=== PATIENT | male | born 1995 | race Caucasian/White ===

== ENCOUNTER 2018-03-15 14:51 | Emergency (ER) | payer OTHER | END 2018-03-15 16:31 | disposition home or self-care (01) | LOC: M ED 14:51 | DX: T44.7X5A Adverse effect of beta-adrenoreceptor antagonists, initial encounter (principal); Y92.9 Unspecified place or not applicable; Y93.9 Activity, unspecified; R51 Headache; R00.1 Bradycardia, unspecified; H40.9 Unspecified glaucoma; Z79.899 Other long term (current) drug therapy | CPT/HCPCS: 93005 ==

== ENCOUNTER → 2018-10-22 | Outpatient (REF) | payer OTHER ==
[~2018-10-22] MED LIST: LATA0.0013 OP; SIMB1SUS OP
== END ==
LOC: M LAB REF 12:15
PROVIDERS: ATTEND Ophthalmology
DX: H10.432 Chronic follicular conjunctivitis, left eye (principal)

== ENCOUNTER → 2019-07-27 | Outpatient (REF) | payer OTHER ==
[2019-07-27 16:49] LABS: BASO % 0.3 % (0.0-1.0); EOS # 0.1 10^3/uL (0.0-0.5); EOS % 1.4 % (0.0-3.0); HEMATOCRIT 45.2 % (42.0-52.0); HEMOGLOBIN 15.4 g/dl (13.5-17.5); LYMPH # 1.9 10^3/uL (1.5-5.0); LYMPH % 21.5 % (24.0-44.0); MEAN CORPUSCULAR HEMOGLOBIN 29.3 pg (27.0-33.0); MEAN CORPUSCULAR HGB CONC 34.1 g/dl (32.0-36.5); MEAN CORPUSCULAR VOLUME 86.1 fl (80.0-96.0); MONO # 0.7 10^3/uL (0.0-0.8); MONO % 7.9 % (0.0-5.0); NEUTROPHILS % 68.6 % (36.0-66.0); PLATELET COUNT, AUTOMATED 243 10^3/uL (150-450); RED BLOOD COUNT 5.25 10^6/uL (4.30-6.10); WHITE BLOOD COUNT 8.8 10^3/uL (4.0-10.0)
[2019-07-27 17:22] LABS: ERYTHROCYTE SEDIMENTATION RATE 5 mm/hr (0-15)
[2019-07-27 17:28] LABS: ALBUMIN 4.3 GM/DL (3.2-5.2); ALT/SGPT 58 U/L (12-78); BILIRUBIN,TOTAL 0.5 MG/DL (0.2-1.0); BLOOD UREA NITROGEN 20 MG/DL (7-18); C REACTIVE PROTEIN QUANTITATIV < 0.30 MG/DL (0.00-0.30); CALCIUM LEVEL 8.9 MG/DL (8.5-10.1); CARBON DIOXIDE LEVEL 22 MEQ/L (21-32); CHLORIDE LEVEL 105 MEQ/L (98-107); CREATININE FOR GFR 1.28 MG/DL (0.70-1.30); GLOMERULAR FILTRATION RATE > 60.0 (>60); GLUCOSE, FASTING 78 MG/DL (70-100); POTASSIUM SERUM 4.4 MEQ/L (3.5-5.1); SODIUM LEVEL 137 MEQ/L (136-145); TOTAL PROTEIN 7.8 GM/DL (6.4-8.2); URIC ACID 7.6 MG/DL (3.5-7.2)
[2019-07-30 15:07] LABS: ANGIOTENSIN 1 CONVERTING ENZYM < 15 U/L (14-82); Lyme Disease IgG Ab 18 kDa Ban Absent (.); Lyme Disease IgG Ab 23 kDa Ban Absent (.); Lyme Disease IgG Ab 28 kDa Ban Absent (.); Lyme Disease IgG Ab 30 kDa Ban Absent (.); Lyme Disease IgG Ab 39 kDa Ban Absent (.); Lyme Disease IgG Ab 41 kDa Ban Present (.); Lyme Disease IgG Ab 45 kDa Ban Absent (.); Lyme Disease IgG Ab 58 kDa Ban Absent (.); Lyme Disease IgG Ab 66 kDa Ban Absent (.); Lyme Disease IgG Ab 93 kDa Ban Absent (.); Lyme Disease IgG West Blot Int Negative (.); Lyme Disease IgG/IgM Antibodie 0.96 ISR (0.00-0.90); Lyme Disease IgM Ab 23 kDa Ban Absent (.); Lyme Disease IgM Ab 39 kDa Ban Absent (.); Lyme Disease IgM Ab 41 kDa Ban Absent (.); Lyme Disease IgM Ab Quantitati <0.80 index (0.00-0.79); Lyme Disease IgM West Blot Int Negative (.)
== END ==
LOC: M SFHCRHEU 15:16
PROVIDERS: ATTEND Internal Medicine
DX: L50.8 Other urticaria (principal); M25.50 Pain in unspecified joint; Z86.69 Personal history of other diseases of the nervous system and sense organs; R76.8 Other specified abnormal immunological findings in serum
CPT/HCPCS: 80053; 82164; 84443; 84550; 85025; 85652; 86140; 86617; G0463

== ENCOUNTER → 2019-10-14 | Outpatient (CLI) | payer OTHER ==
[~2019-10-14] MED LIST changes: +BIMA01SOL OU; +COMB0.2S OU; +OCUF0.25 OD; +POLYSOL OD
--- NOTE | 2019-10-18 15:25 | SLEEPCENT ---
DATE OF PROCEDURE: 10/14/2019 ORDERED BY: Hannah Mejía NP Nocturnal polysomnography was performed for evaluation of sleep physiology in this patient with a history of excessive somnolence, snoring and nonrestorative sleep. 7 hours and 39 minutes of data were reviewed. There were 355 minutes of sleep identified. Sleep latency was short at 6 minutes. REM latency was delayed at 164 minutes. Sleep architecture was fragmented early in the study, improved later with three REM cycles. Overall sleep efficiency 78.8%. The electrocardiogram showed a sinus rhythm with an average heart rate of 60 beats per minute. Some PVCs were appreciated and the rate varies between 40 to 80 beats per minute. EEG showed normal waveforms for awake and sleep. There were 32 respiratory events identified of 10 seconds in duration or greater for an apnea-hypopnea index of 5.2. The events were not exclusive to sleep stage nor body posture. Arousals from respiratory events occurred 6.4 times per hour and oxygen desaturations were seen to 90%. There was minimal activity in the limb leads. Limb movement arousal index of 6.3. IMPRESSION: Obstructive sleep apnea syndrome (G47.33). Apnea-hypopnea index 5.2. RECOMMENDATIONS: Given the patient's symptoms and the lack of a postural relationship for respiratory events, referral back to sleep disorder center for pressure therapy is recommended. In the interim, alcohol and sedative avoidance should be practiced and caution exercised during operation of motor vehicles.
== END ==
LOC: M SLEEP 20:00
PROVIDERS: ATTEND Nurse Practitioner Family
DX: R06.83 Snoring (principal); R40.0 Somnolence; G47.59 Other parasomnia

== ENCOUNTER → 2019-11-10 | Outpatient (CLI) | payer OTHER ==
--- NOTE | 2019-11-15 08:38 | SLEEPCENT ---
DATE OF PROCEDURE: 11/10/2019 ORDERED BY: NATAN Harrell Nocturnal polysomnography was performed for the titration of pressure therapy in this patient with obstructive sleep apnea syndrome. Apnea-hypopnea index 5.2. For testing a ResMed AirFit F20 full-face mask of medium size was used; 4 cm of water pressure were applied to the circuit and the lights were extinguished. 7 hours of data were reviewed. There were 377.5 minutes of sleep identified. Sleep latency was short at 10.5 minutes. Rapid eye movement (REM) latency mildly prolonged at 167 minutes. Sleep architecture improved and there was evidence of some REM rebound. There were 3 REM cycles noted. Overall sleep efficiency was 91.5%. The patient's electrocardiogram showed a sinus rhythm with an average heart rate at 56 beats per minute. Electroencephalogram (EEG) showed normal waveforms for awake and sleep. Respiratory events were fully palliated with CPAP at a pressure of +5. Remaining measures of sleep physiology were normal. IMPRESSION: Obstructive sleep apnea syndrome (G47.33). RECOMMENDATIONS: Nightly use of pressure therapy 5 cm of water.
== END ==
LOC: M SLEEP 20:00
PROVIDERS: ATTEND Nurse Practitioner Family
DX: G47.33 Obstructive sleep apnea (adult) (pediatric) (principal)

== ENCOUNTER 2019-11-24 06:27 | Emergency (ER) | payer OTHER ==
[~2019-11-24] VITALS: Ht 177.8 cm; Wt 117.9 kg
[2019-11-24] MEDS ORDERED: NS 1,000 ML IV ONE (07:00)
[2019-11-24] MEDS ORDERED: diphenhydrAMINE 50MG/ML VIAL (J1200) IV ONE (07:00)
[2019-11-24] MEDS ORDERED: dexameTHASONE 20MG/5ML VIAL (J1100 PER 1MG) IV ONE (07:00)
[2019-11-24] MEDS ORDERED: FAMOTIDINE INJ 20MG/2ML VIAL (S0028 PER 1) IVP ONE (07:00)
[2019-11-24 07:16] LABS: BASO % 0.1 % (0.0-1.0); EOS # 0.1 10^3/uL (0.0-0.5); EOS % 0.7 % (0.0-3.0); HEMATOCRIT 45.4 % (42.0-52.0); HEMOGLOBIN 15.5 g/dl (13.5-17.5); LYMPH # 1.7 10^3/uL (1.5-5.0); LYMPH % 18.3 % (24.0-44.0); MEAN CORPUSCULAR HEMOGLOBIN 29.3 pg (27.0-33.0); MEAN CORPUSCULAR HGB CONC 34.1 g/dl (32.0-36.5); MEAN CORPUSCULAR VOLUME 85.8 fl (80.0-96.0); MONO # 0.5 10^3/uL (0.0-0.8); MONO % 5.9 % (0.0-5.0); NEUTROPHILS # 6.9 10^3/uL (1.5-8.5); NEUTROPHILS % 74.7 % (36.0-66.0); PLATELET COUNT, AUTOMATED 202 10^3/uL (150-450); RED BLOOD COUNT 5.29 10^6/uL (4.30-6.10); WHITE BLOOD COUNT 9.2 10^3/uL (4.0-10.0)
[2019-11-24 07:36] LABS: BLOOD UREA NITROGEN 14 MG/DL (7-18); C REACTIVE PROTEIN QUANTITATIV 0.44 MG/DL (0.00-0.30); CALCIUM LEVEL 8.4 MG/DL (8.5-10.1); CARBON DIOXIDE LEVEL 23 MEQ/L (21-32); CHLORIDE LEVEL 109 MEQ/L (98-107); CREATININE FOR GFR 0.92 MG/DL (0.70-1.30); GLOMERULAR FILTRATION RATE > 60.0 (>60); GLUCOSE, FASTING 91 MG/DL (70-100); POTASSIUM SERUM 4.3 MEQ/L (3.5-5.1); SODIUM LEVEL 139 MEQ/L (136-145)
[2019-11-24] MEDS ORDERED: PRED20TA PO (08:47)
[2019-11-24 08:53] LABS: ERYTHROCYTE SEDIMENTATION RATE 3 mm/hr (0-15)
[2019-11-24 09:05] VITALS: BP 170/77
== END 2019-11-24 09:08 | disposition home or self-care (01) ==
LOC: M ED 06:27
DX: L50.9 Urticaria, unspecified (principal); R22.0 Localized swelling, mass and lump, head; I10 Essential (primary) hypertension; G47.33 Obstructive sleep apnea (adult) (pediatric); H16.9 Unspecified keratitis; H20.9 Unspecified iridocyclitis; H40.9 Unspecified glaucoma; Z88.8 Allergy status to other drugs, medicaments and biological substances; Z79.899 Other long term (current) drug therapy
CPT/HCPCS: 80048; 85025; 85652; 86140; 93041; 94760; 96361; 96374; 96375; 99284; J1100; J1200